=== PATIENT | male | born 1950 | race Caucasian/White ===

== ENCOUNTER → 2018-05-23 | Outpatient (CLI) | payer OTHER ==
--- NOTE | 2018-05-23 14:23 | RT STRESS TEST REPORT ---
FACILITY: [facility] PATIENT NAME: KAZ ARORA : [id number] MR: [id number]: [id number] EXAM DATE: ORDERING PHYSICIAN: MARY STEINBERG TECHNOLOGIST: Michael [employer] Time: 2018-05-23 09:07:59 Total Exercise Time: 00:08:12 Test Indications: CAD Medications: Protocol: BRUCE2 Max HR: 148 BPM 95% of Pred: 155 BPM Max BP: 165/072 mmHG Max Work Load: 10.[address] changes during exercise Impression Negative treadmeill stress test Confirmed by JUAN MIGUEL LOCKHART ([id number]) on 05/23/2018 2:24:20 PM Referred By: Overread By: JUAN MIGUEL LOCKHART
== END ==
LOC: RESP 01:07
PROVIDERS: ATTEND Family Medicine
DX: I25.10 Atherosclerotic heart disease of native coronary artery without angina pectoris (principal); Z82.49 Family history of ischemic heart disease and other diseases of the circulatory system
CPT/HCPCS: 93017